=== PATIENT | male | born 1995 | race Hispanic/Latino ===

== ENCOUNTER 2022-01-12 21:02 | Emergency (ER) | payer OTHER, SELFPAY ==
--- NOTE | ~2022-01-12 | XR_ITS ---
EXAMINATION: XR chest 2V DATE: 01/12/2022 22:21 INDICATION: Cough. Congestion. TECHNIQUE: Frontal and lateral views of the chest were obtained. COMPARISON: None. FINDINGS: The chest demonstrates clear lungs without pneumonia, pleural effusion, or pneumothorax. Th e heart size is normal. IMPRESSION: 1. No acute cardiopulmonary disease. Reviewed, dictated and finalized at location A.
[2022-01-12 21:32] VITALS: BP 152/92; PULSE 88; RESP 16; TEMP 36.1; O2SAT 99
--- NOTE | 2022-01-12 22:14 | ED.URI ---
HPI - URI/Sore Throat General Chief Complaint: Upper Respiratory Infection <Martita Landers PA-C - Last Filed: 01/13/22 02:48> Stated Complaint: cough <DOMINGA Schmitt Last Filed: 01/13/22 02:48> Time Seen by Provider: 01/12/22 21:38 <DOMINGA Schmitt Last Filed: 01/13/22 02:48> Source: patient <DOMINGA Schmitt Last Filed: 01/13/22 02:48> Mode of arrival: ambulatory <DOMINGA Schmitt Last Filed: 01/13/22 02:48> Limitations: no limitations <DOMINGA Schmitt Last Filed: 01/13/22 02:48> History of Present Illness HPI Narrative: Patient is a 26-year-old male who presents the ED with report of persistent cough. Patient reports having a cough, congestion, rhinorrhea, sore throat for the past 1 week. He has been taking rstk-ooa-zapryvq cough and cold medications at home without relief. Over the past 2 days, he reports the cough has become worse, which prompted him to come to the ED. He is concerned he may have pneumonia. He denies any production of phlegm. He denies any difficulty breathing. He does report some rib pain with coughing, but denies any pain at rest. Denies any fever, chills, nausea, vomiting, abdominal pain. His at bedside has not had similar symptoms. He has taken at home COVID test that was negative. <DOMINGA Schmitt Last Filed: 01/13/22 02:48> Related Data Allergies/Adverse Reactions: Allergies Allergy/AdvReac Type Severity Reaction Status Date / Time No Known Allergies Allergy Verified 01/12/22 21:35 <DOMINGA Schmitt Last Filed: 01/13/22 02:48> Review of Systems Review of Systems: CONSTITUTIONAL: Denies fever, chills, or sweats. ENT: Reports rhinorrhea, congestion, sore throat. CARDIOVASCULAR: Denies chest pain, palpitations, or edema. RESPIRATORY: Reports dry cough. Denies dyspnea. GASTROINTESTINAL: Denies abdominal pain, nausea, vomiting. MUSCULOSKELETAL: Reports rib pain with coughing. Denies back pain, myalgia. NEUROLOGIC: Denies headache, numbness, or weakness. <Martita Landers PA-C - Last Filed: 01/13/22 02:48> All systems reviewed & are unremarkable except as noted in HPI and below <Martita Landers PA-C - Last Filed: 01/13/22 02:48> PMFSH Past Medical History Medical History: Medical History No pertinent past medical history <Martita Landers PA-C - Last Filed: 01/13/22 02:48> Surgical History Surgical History: Surgical History (Updated 01/12/22 @ 22:16 by Martita Landers PA-C) History of surgical removal of keloid <Martita Landers PA-C - Last Filed: 01/13/22 02:48> Social History Social History: Social History (Updated 01/12/22 @ 22:17 by Martita Landers PA-C) Smoking status: Never smoker <Martita Landers PA-C - Last Filed: 01/13/22 02:48> Exam Narrative: GENERAL: Well appearing, well-nourished, non-toxic, in no acute distress. HEAD: Normocephalic, atraumatic. EYES: EOMI, conjunctivae clear bilaterally. NOSE: Normal, no drainage. THROAT: Pharynx clear, no exudate. MMs moist. NECK: Supple. No adenopathy, no masses. RESPIRATORY: Airway patent, respirations nonlabored. Clear to auscultation bilaterally, no rales, rhonchi, wheezing. Rare cough on exam. CARDIOVASCULAR: Regular rate and rhythm without murmurs, rubs, or gallops. Peripheral pulses 2+ and equal bilaterally. MUSCULOSKELETAL: Moves all extremities. Strength/ROM intact without gross deformities. SKIN: Warm, dry, normal color. No rashes. NEURO: A&O X3. Speech clear. Cranial nerves II-XII grossly intact. Steady gait. No ataxic movements. PSYCHIATRIC: Appropriate mood and affect. Normal interaction. <Martita Landers PA-C - Last Filed: 01/13/22 02:48> Course STUDENT RECORDS COORDINATOR/PA Physician Supervision For this encounter, I have reviewed the FAB documentation, treatment plan and medical decision making: I was available for consultation as needed. [] <Nacho Hearn,
[2022-01-12 22:45] VITALS: BP 146/85; PULSE 92; RESP 16; O2SAT 98
[2022-01-12 23:31] LABS: SARS-CoV-2 RNA PCR Negative
--- NOTE | 2022-01-13 11:45 | PC.NURSE ---
erp dr divya cline'rgeta greenberg to change dose of benzonate to 100mg from 150mg.
== END 2022-01-12 23:25 | disposition home or self-care (01) ==
PROVIDERS: Physician Assistant; Emergency Provider Emergency Medicine; PCP Nurse Practitioner
DX: J06.9 Acute upper respiratory infection, unspecified (principal); Z20.822 Contact with and (suspected) exposure to COVID-19
CPT/HCPCS: 71046; 99283; C9803; U0003; U0005

== ENCOUNTER 2024-02-02 07:39 | Outpatient (CLI) | payer OTHER, SELFPAY ==
--- NOTE | ~2024-02-02 | US_ITS ---
Right upper quadrant ULTRASOUND Ordering provider: Robyn Cota, ANP History: . Elevated liver enzymes . Comparison: None. FINDINGS: LIVER: Normal size. Increased Echotexture suggestive of fat infiltration. No focal hepatic lesions or perihepatic fluid collections are identified. Normal portal vein flow. GALLBLADDER: Unremarkable. No evidence for stones, sludge, gallbladder wall thickening or pericholecy stic fluid collections. The wall thickness is 0.2 cm. A negative sonographic Gan's sign was noted. BILIARY DUCTS: No evidence for intra or extrahepatic biliary dilation. Common bile duct measures 5 mm in diameter which is within normal limits. PANCREAS: Not well demonstrated. KIDNEYS: Right measures 10.5 cm in length . There is no evidence for hydronephrosis, solid renal mass , renal calculi or perinephric fluid collections. No renal cysts. FREE FLUID: None. IMPRESSION: Fat infiltration of the liver otherwise, Unremarkable right upper quadrant ultrasound of the abdomen. Reviewed, dictated and finalized at location A. IMPRESSION: Fat infiltration of the liver otherwise, Unremarkable right upper quadrant ultr asound of the abdomen.
== END 2024-02-02 07:40 ==
PROVIDERS: PCP Nurse Practitioner; Visit Provider Nurse Practitioner
DX: R74.8 Abnormal levels of other serum enzymes (principal); K76.0 Fatty (change of) liver, not elsewhere classified
CPT/HCPCS: 76705

== ENCOUNTER 2025-06-28 15:05 | Emergency (ER) | payer OTHER, SELFPAY ==
[2025-06-28] VITALS (24 sets, daily range): BP systolic 134–163; BP diastolic 77–111; PULSE 93–115; RESP 12–22; TEMP 36.6; O2SAT 97–100
--- NOTE | ~2025-06-28 | XR_ITS ---
XR chest 2V INDICATION: Chest pain TECHNIQUE: 2 view chest. FINDINGS: 01/12/2022 There is mild bilateral interstitial prominence and peribronchial cuffing. There is no focal consolidation, pleural effusion, or pneumothorax. The cardiomediastinal silhouette is normal. IMPRESSION: 1. Findings most consistent with bronchiolitis versus an atypical or viral pneumonia. Reviewed, dictated and finalized at location I. ECTIONAL SERGEANT IMPRESSION: 1. Findings most consistent with bronchiolitis versus an atypical or viral pne [facility].
--- NOTE | 2025-06-28 15:07 | ECG_ITS ---
Test Date: 2025-06-28 15:11:15 Measurements Intervals [place] Rate: 113 P: 47 MO: 116 QRS: 48 QRSD: 92 T: 29 QT: 315 QTc: 432 Interpretive Statements SINUS TACHYCARDIA WITH SHORT MO INTERVAL POSSIBLE LEFT ATRIAL ENLARGEMENT MINIMAL Q WAVES- HIGH LATERAL LEADS ABNORMAL ECG No previous ECG available for comparison Electronically Signed On 06-28-2025 15:37:35 ROUGHENER by Jean Espinosa D.O.
[2025-06-28] MEDS: ASPIRIN 81 MG CHEWABLE TABLET 324 MG PO (15:28)
[2025-06-28 15:29] LABS: Hematocrit 47.2 % (42.0-52.0); Hemoglobin 15.9 g/dL (14.0-18.0); Immature Granulocyte Percent A 0.7 % (0-0.5); Lymphocytes Absolute Auto 2.67 K/mm3 (0.9-3.2); Mean Corpuscular HGB Conc 33.7 g/dl (32-36); Mean Corpuscular Hemoglobin 27.7 pg (26-34); Mean Corpuscular Volume 82.4 fl (80-100); Nucleated Red Blood Cells Absolute Auto 0.000 K/mm3 (0.0-0.012); Nucleated Red Blood Cells Perc 0.0 % (0.0-0.2); Platelet Count Result 251 k/mm3 (150-375); Red Blood Count 5.73 M/mm3 (4.6-6.20); White Blood Count 11.0 K/mm3 (4.5-10.0)
[2025-06-28 15:40] LABS: Alanine Aminotransferase 109 U/L (6-50); Albumin Level 4.9 g/dL (3.5-5.1); Alkaline Phosphatase 112 U/L (38-126); Anion Gap 9 mmol/L (4-12); Aspartate Amino Transferase 51 U/L (17-59); Bilirubin,Total 0.7 mg/dL (0.2-1.3); Blood Urea Nitrogen 12 mg/dL (9-20); Calcium 9.4 mg/dL (8.4-10.2); Carbon Dioxide 26 mmol/L (22-30); Chloride 104 mmol/L (98-107); Estimated CRCL calculation 123 ml/min; Estimated Glomerular Filt Rate > 60; Glucose 137 mg/dL (65-110); Lipase 90 U/L (23-300); Potassium 3.6 mmol/L (3.4-5.0); Sodium 139 mmol/L (137-145); Total Protein 8.8 g/dL (6.3-8.2)
[2025-06-28 15:49] LABS: INR 1.0; Prothrombin Time 13.1 Seconds (11.1-14.7)
[2025-06-28 15:50] LABS: Partial Thromboplastin Time 27.8 Seconds (22.3-36.8)
[2025-06-28 15:52] LABS: Troponin I < 0.012 ng/mL (0.000-0.034)
--- NOTE | 2025-06-28 16:06 | ED.CHESTPAIN ---
HPI - Chest Pain General Chief Complaint: Chest Pain Stated Complaint: CP Time Seen by Provider: 06/28/25 15:07 Source: patient Mode of arrival: ambulatory Limitations: no limitations History of Present Illness HPI narrative: Patient presents with report of left sided chest pain described as a tightness occurring intermittently since yesterday, not currently present. He has possibly been having palpitations. History of pneumonia 6 years ago. No other underlying respiratory conditions. He had an episode of shortness of breath while getting out of his truck earlier that lasted 5 minutes, has not recurred. No edema. No palliating or provoking factors. He has not been diagnosed with hypertension. Says when he has been at previously PCP visits, his SBP was >130 and he was concerned but says plan is for continued monitoring. He checked his BP yesterday and it was 159/105 and then 119/90 on recheck. Family history of hypertension. No personal history of cardiac issues, has never seen a mechanical design engineer products. No nausea/vomiting/fevers/chills/cough. Possible sick contacts given his work though nothing confirmed. Non radiating. Cardiac risk factors HTN: Borderline per patient but no official diagnosis HLD: Yes but no official diagnosis and not on statin (elevated by report and continuing to monitor) DM: No Obese: Yes Smoker: No Personal history VT/TIA/CVA: No Fam Hx VT in first degree relative <65yo: No Related Data Allergies Allergy/AdvReac Type Severity Reaction Status Date / Time No Known Allergies Allergy Verified 06/28/25 15:16 PMFSH Past Medical History Medical History Pneumonia approx 2019 Surgical History Surgical History (Updated 01/12/22 @ 22:16 by Martita Schaffer PA-C) History of surgical removal of keloid Family History Family History Mother Hypertension Grandparent Diabetes mellitus Hypertension Father Hypertension Social History Social History Smoking status: Never smoker Occupation/Education: occupation Additional occupation/education comments: hol[employer] Exam Narrative: GENERAL: Well-appearing, well-nourished, and in no acute distress. HEAD: Normocephalic, atraumatic. EYES: Non injected, non icteric ENT: Nares clear, no rhinorrhea or epistaxis. Gross auditory acuity intact. NECK: Supple. No meningismus. CHEST: Speaking in full sentences. No respiratory distress. Non labored. HEART: Tachycardic rate and rhythm. . ABDOMEN: Soft, nondistended. No rigidity or guarding. Not peritoneal EXTREMITIES: Normal range of motion. No lower extremity edema. SKIN: Warm, dry, no rash. NEURO: No focal deficits. Alert and oriented. Answering questions. Following commands. Normal speech without aphasia or dysarthria. PSYCH: Normal mood and affect. Course Vital Signs Vital signs: Vital Signs Temperature 97.9 F 06/28/25 15:12 Pulse Rate 109 H 06/28/25 15:12 Respiratory Rate 20 06/28/25 15:12 Blood Pressure 163/111 H 06/28/25 15:12 Pulse Oximetry 100 06/28/25 15:12 Oxygen Delivery Room Air 06/28/25 15:12 Temperature 97.9 F 06/28/25 15:12 Pulse Rate 96 06/28/25 19:03 Respiratory Rate 16 06/28/25 19:03 Blood Pressure 143/90 H 06/28/25 19:03 Pulse Oximetry 100 06/28/25 19:03 Oxygen Delivery Room Air 06/28/25 15:12 [facility] MDM Narrative Medical decision making narrative: Patient presents with intermittent chest pain since yesterday. Had an episode of SOB for 5 minutes. In the emergency department he is afebrile with vital signs notable for hypertension and tachycardia. Because of the tachycardia and the reported episode of shortness of breath, D-dimer ordered. HEART SCORE History 2 highly suspicious 1 moderately suspicious 0 slightly suspicious History score [address] depression/elevation not due to LBBB, LVH, or digoxin [address] depression but LBBB, LVH, nonspecific repolarization changes 0 normal ECG score 0 Age 2 >/= 65 1 45-64 0 <45 Age score 0 Risk factors (HTN, hypercholesterolemia, DM, obesity with BMI >30, current smoker or cessation </=3mo), positive fam hx with parent or sibling with CVD before age 65, atherosclerotic disease (prior VT, PCI/CABG, CVA/TIA, or peripheral arterial disease) 2 >/= 3 risk factors or history of atherosclerotic dz 1 - 1-2 risk factors 0 no known risk factors Risk factor score 1 Initial Troponin 2 >3 times normal limit 1 1-3 times normal limit 0 less than or equal to normal limit Troponin score 0 Total HEART Score 1 Mild leukocytosis. Dimer normal. CXR as below. Received first dose in ED and rest of course prescribed. Mild hyperglycemia but without anion gap or acidosis. Isolated ALT elevation; no prior for comparison. Lipase normal. Repeat troponin normal. Repeat BP has normalized. Advised to follow up with PCP regarding BP measurements/log at home. Provided a cardiology referral as well. Had discussed HEART score/risk stratification with patient as well. Differential Diagnosis Differential Diagnosis: Differential diagnostic considerations for chest pain?include?ACS, pneumothorax, pulmonary embolus, laure/pericarditis, angina, STEMI, esophageal abnormality, GI etiology, pneumonia, rib fracture, biliary colic, atypical/non-cardiac (MSK, etc). Medical Records I have reviewed the following patient records and this information was taken into consideration when formulating the assessment and plan.: previous labs (attempted) Lab Data MDM Lab Attestation statement: I personally reviewed the patient's lab results. 06/28/25 15:18 06/28/25 15:18 Labs: Lab Results 06/28/25 06/28/25 Range/Units 15:18 18:13 WBC 11.0 H (4.5-10.0) K/mm3 RBC 5.73 (4.6-6.20) M/mm3 Hgb 15.9 (14.0-18.0) g/dL Hct 47.2 (42.0-52.0) % MCV 82.4 (80-100) fl MCH 27.7 (26-34) pg MCHC 33.7 (32-36) g/dl RDW 12.9 (11.5-14.5) % Plt Count 251 (150-375) k/mm3 MPV 10.6 H (7.4-10.4) fl Immature Gran % (Auto) 0.7 H (0-0.5) % Neut % (Auto) 64.9 (45.5-73.1) % Lymph % (Auto) 24.3 (18.3-44.2) % Moore % (Auto) 5.7 (2.6-8.5) % Eos % (Auto) 3.9 (0-4.4) % Baso % (Auto) 0.5 (0.2-1.2) % Lymph # (Auto) 2.67 (0.9-3.2) K/mm3 Moore # (Auto) 0.6 (0.1-0.6) K/mm3 Eos # (Auto) 0.4 H (0-0.3) K/mm3 Baso # (Auto) 0.1 (0.0-0.1) K/mm3 Abs Immat Gran (auto) 0.08 H (0.00-0.031) K/mm3 Absolute Neuts (auto) 7.1 H (1.3-6.7) K/mm3 Absolute Nucleated RBC 0.000 (0.0-0.012) K/mm3 Nucleated RBC % 0.0 (0.0-0.2) % PT 13.1 (11.1-14.7) Seconds INR 1.0 APTT 27.8 (22.3-36.8) Seconds D-Dimer < 0.27 (<0.48) ug/mL Sodium 139 (137-145) mmol/L Potassium 3.6 (3.4-5.0) mmol/L Chloride 104 (98-107) mmol/L Carbon Dioxide 26 (22-30) mmol/L Anion Gap 9 (4-12) mmol/L BUN 12 (9-20) mg/dL Creatinine 1.00 (0.7-1.3) mg/dL Estim Creat Clear Calc 123 ml/min Estimated GFR > 60 (59 - ) Glucose 137 H (65-110) mg/dL Calcium 9.4 (8.4-10.2) mg/dL Total Bilirubin 0.7 (0.2-1.3) mg/dL AST 51 (17-59) U/L ALT 109 H (6-50) U/L Alkaline Phosphatase 112 (38-126) U/L Troponin I < 0.012 < 0.012 (0.000-0.034) ng/mL Total Protein 8.8 H (6.3-8.2) g/dL Albumin 4.9 (3.5-5.1) g/dL Lipase 90 (23-300) U/L Imaging Data Radiologist's impression: ITS Impressions Chest X-Ray 06/28/25 15:27 IMPRESSION: 1. Findings most consistent with bronchiolitis versus an atypical or viral pneumonia. ECG Data EKG #1: Attestation: I personally reviewed and interpreted this ECG as follows: ECG completion date: 06/28/25 ECG completion time: 15:11 Interpretation: Sinus tachycardia at a rate of 113 beats per minute. TN interval is noted to be shortened but it is 116 milliseconds. No delta wave or concerning features of Ogadi-Snfcomvpw-Psbpt. Good R-wave progression across the precordial leads. T-wave flattening in 3 but upright in contiguous inferior leads and no other T-wave inversions. EKG #2: Attestation: I personally reviewed and interpreted this ECG as follows: ECG completion date: 06/28/25 ECG completion time: 18:19 Interpretation: Normal sinus rhythm at a rate of 88 beats per minute. TN interval 142. QRS 96. QT/QTC 362/439. Good R-wave progression across the precordial leads. No T-wave inversions. Normal ECG. Normal axis. Discharge Plan Discharge Clinical Impression: Chest x-ray abnormality, Leukocytosis, Elevated alanine aminotransferase (ALT) level, Chest pain, Shortness of breath, Elevated blood pressure reading without diagnosis of hypertension Patient Disposition: Home Condition: Stable Instructions: Antibiotic Form, Chest Pain (ED), How to Take a Blood Pressure Reading (ED), Pneumonia (ED), Shortness of Breath (ED), Transaminitis (ED) Additional Instructions: Your EKGs and 2 cardiac enzymes/troponin were reassuring. Your chest x-ray did show evidence of bronchiolitis versus pneumonia and for this reason you received your 1st dose of antibiotic in the emergency department and the rest of the course is prescribed. Follow up with your PCP for this and your elevated liver enzyme. Continue to check your BP and take a log to your PCP; they will use this information to determine if you need to be put on a blood pressure medication /diagnose you with hypertension. THe name of a mechanical design engineer products is listed below if you would like to follow up with them. Acetaminophen/Tylenol (maximum 4000 mg per day) is safe to take with NSAIDs (ibuprofen/Motrin) for pain relief. Return to the emergency department any new or worsening symptoms. Patient Language: [place]ese Prescriptions: New doxycycline hyclate 100 mg capsule 100 mg PO DAILY Qty: 5 0RF No Action benzonatate 150 mg capsule 150 mg PO TID PRN (Reason: cough) Qty: 15 0RF Follow-up/Referrals: Fidel Chapa MD [Physician, Cardiology] Beata,LINDA Lockett [Primary Care Provider, Unknown] Stand Alone Forms: Work/School Release IP Time of Disposition: 18:55
--- OUTSIDE RECORDS SUMMARY | 2025-06-28 16:27 | XMS_ITS | Clinical Summary ---
Author Organization [facility] Address [address] [place] [address] Care Team Providers Care First Line Production Supervisor Name Role Phone Robyn Cota NP Primary Care Provider [phone] Allergies No known active allergies Medications No known medications Active Problems Problem Noted Date Diagnosed Date Hypertension, unspecified type 01/09/2022 Obesity (BMI 30.0-34.9) 01/09/2022 Skin nodule 01/09/2022 Keloid 01/09/2022 Encounters Date Type Department Care Team Description 06/28/2025 [place] Message Enc [facility] Family Medicine [facility] [address] [address] Robyn Cota NP Cardiovascular from Last 3 Months Immunizations Immunization Administration Dates Next Due Influenza Adult (Generic) 09/02/2022 MMR (MMRII) 09/02/2022 Tdap (Generic) 09/02/2022 Family History Medical History Relation Comments Hypertension Father Cancer Maternal Grandfather Diabetes Maternal Grandmother Hypertension Mother Relation Status Comments Father Maternal Grandfather Maternal Grandmother Mother Social History Tobacco Use Types Packs/Day Years Used Date Smoking Tobacco: Never Passive Smoke Exposure: Never Smokeless Tobacco: Never Tobacco Cessation:Counseling Given: No Alcohol Use Standard Drinks/Week Comments Yes 4 (1 standard drink = 0.6 oz pur e alcohol) PHQ-2 Answer Date Recorded Patient Health Questionnaire-2 Score 0 01/15/2024 Sex and Gender Information Value Date Recorded Sex Assigned at Not on file Legal Sex Male 1:01 PM CDT Gender Identity Not on file Sexual Orientation Not on file Last Filed Vital Signs Vital Sign Reading Time Taken Comments Blood Pressure 120/90 01/15/2024 10:01 AM CDT Pulse 80 01/15/2024 9:21 AM CDT Temperature 37.1 C (98.7 F) 01/15/2024 9:21 AM CDT Respiratory Rate 22 01/15/2024 9:21 AM CDT Oxygen Saturation 97% 01/15/2024 9:21 AM CDT Inhaled Oxygen Concentration - - Weight 116.1 kg (256 lb) 01/15/2024 9:21 AM CDT Height 177.8 cm (5' 10) 01/15/2024 9:21 AM CDT Body Mass Index 36.73 01/15/2024 9:21 AM CDT Plan of Treatment Health Maintenance Due Date Last Done Comments Hepatitis B Vaccines (2 of 2 - CpG 2-dose series) 10/27/2023 09/29/2023 HPV Vaccines (1 - 3-dose SCD M series) 12/25/2023 PHQ-2 (Physician Lorraine) 07/27/2024 01/15/2024 Annual Physical 01/14/2025 01/15/2024, 01/14/2023, 01/09/2022 COVID-19 Vaccine (1 - 2024-2 6 season) 2025 Influenza Adult (#1) 2025 09/02/2022 DTaP, Tdap and Td Vaccines ( 2 - Td or Tdap) 09/02/2032 09/02/2022 Hepatitis C Completed 02/03/2022 Hepatitis A Vaccines Aged Out No long er eligible based on patient's age to complete this topic Meningococcal B Vaccine Aged Out No l onger eligible based on patient's age to complete this topic Meningococcal Vaccine Aged Out No rafia lei eligible based on patient's age to complete this topic Pneumococcal Vaccine: Pediatrics (0 to 5 Years) and At-Risk Patients (6 to 49 Years) Aged Out No longer eligible b ased on patient's age to complete this topic RSV Immunizations Under 20 Months Aged Out No longer eligible b ased on patient's age to complete this topic Procedures Procedure Name Priority Date/Time Associated Diagnosis Comments HEPATITIS C ANTIBODY Routine 02/03/2022 7:57 AM CDT Need for hepatitis C screening test from Last 3 Months or Most Recently Relevant to Health Maintenance Results * HEPATITIS C ANTIBODY (02/03/2022 7:57 AM CDT) HEPATITIS C AB NON-REACTI VE NON-REACT TANISHA 02/03/2022 7:29 PM CDT [facility] Comment: ANTIBODIES TO HCV NOT DETECTED. DOES NOT EXCLUDE THE POSSIBILITY OF EXPOSURE TO HCV. 02/03/2022 7:57 AM CDT us Robyn Cota NP LABORATORY Final Res ult [facility] [address] [place] [address], [id number] from Last 3 Months or Most Recently Relevant to Health Maintenance Insurance [facility] [place] [id number] [facility] Care Teams First Line Production Supervisor Relationship Specialty Start Date End Date Robyn Cota NP [address] [place] [address] PCP - General NURSE PRACTITIONER 01/03/22
--- OUTSIDE RECORDS SUMMARY | 2025-06-28 16:27 | XMS_ITS | Encounter Summary ---
Author Organization [facility] Address [address] [place] [address] Care Team Providers Care Bioinformaticist Name Role Phone Robyn Cota NP Primary Care Provider [phone] Encounter Details Date Type Department Care Team (Late st Contact Info) Description 06/28/2025 [employer] RFID Message Enc [facility] Family Medicine - [place] [address] [facility] [address] [place] [address] [phone] Robyn Cota, SHEET METAL OPERATOR [address] [place], [place] [id number] Cardiovascular Social History Tobacco Use Types Packs/Day Years Used Date Smoking Tobacco: Never Passive Smoke Exposure: Never Smokeless Tobacco: Never Alcohol Use Standard Drinks/Week Comments Yes 4 (1 standard drink = 0.6 oz pur e alcohol) PHQ-2 Answer Date Recorded Patient Health Questionnaire-2 Score 0 01/15/2024 Sex and Gender Information Value Date Recorded Sex Assigned at Not on file Legal Sex Male 1:01 PM CDT Gender Identity Not on file Sexual Orientation Not on file documented as of this encounter Progress Notes * Amber Alexander MA - 06/28/2025 3:02 PM CST Do you want to see him in office first or ok for the referral? L CAMPAIGN SPECIALIST documented in this encounter Plan of Treatment Not on file documented as of this encounter Visit Diagnoses Not on filedocumented in this encounter Care Teams Bioinformaticist Relationship Specialty Start Date End Date Robyn Cota NP [address] [place] [address] PCP - General NURSE PRACTITIONER 01/03/22 documented as of this encounter
--- OUTSIDE RECORDS SUMMARY | 2025-06-28 16:28 | XMS_ITS | Patient Health Record ---
Author Organization [facility] Address [address] [place] [address] Care Team Providers Care Scale And Skip Car Operator Name Role Phone DR. Gloden Walsh Unavailable [phone] Reason For Referral No Information Plan Of Treatment No Information
--- OUTSIDE RECORDS SUMMARY | 2025-06-28 16:50 | XMS_ITS | Clinical Summary ---
Author Organization [facility] Address [address] [place] [address] Care Team Providers Care Print Support Specialist Name Role Phone Robyn Cota NP Primary Care Provider [phone] Allergies No known active allergies Medications No known medications Active Problems Problem Noted Date Diagnosed Date Hypertension, unspecified type 01/09/2022 Obesity (BMI 30.0-34.9) 01/09/2022 Skin nodule 01/09/2022 Keloid 01/09/2022 Encounters Date Type Department Care Team Description 06/28/2025 Fidelis Message Enc [facility] Family Medicine [facility] [address] [address] Robyn Cota NP Cardiovascular from [...] 3-dose SCD M series) 12/25/2023 PHQ-2 (Physician Jewett) 07/27/2024 01/15/2024 Annual Physical 01/14/2025 01/15/2024, 01/14/2023, [...] VE NON-REACT TANISHA 02/03/2022 7:29 PM CDT [facility] Comment: ANTIBODIES TO HCV NOT DETECTED. DOES NOT EXCLUDE THE POSSIBILITY OF EXPOSURE TO HCV. 02/03/2022 7:57 AM CDT us Robyn Cota NP LABORATORY Final Res ult [facility] [address] [place] [address], [id number] from Last 3 Months or Most Recently Relevant to Health Maintenance Insurance [facility] [place] [id number] [facility] Care Teams Print Support Specialist Relationship Specialty Start Date End Date Robyn Cota NP [address] [place] [address] PCP - General NURSE PRACTITIONER 01/03/22
--- OUTSIDE RECORDS SUMMARY | 2025-06-28 16:50 | XMS_ITS | Encounter Summary ---
Author Organization [facility] Address [address] [place] [id number] Care Team Providers Care Obstetric Assistant Name Role Phone Robyn Cota NP Primary Care Provider [phone] Encounter Details Date Type Department Care Team (Late st Contact Info) Description 06/28/2025 [employer] Message Enc [facility] Family Medicine - [place] [address] [facility] [address] [place] [address] [phone] Robyn Cota, UNDERGRADUATE INTERN [address] [place], [place] [id number] Cardiovascular Social History Tobacco Use Types Packs/Day [...] office first or ok for the referral? F WHARFINGER documented in this encounter Plan of Treatment Not on file documented as of this encounter Visit Diagnoses Not on filedocumented in this encounter Care Teams Obstetric Assistant Relationship Specialty Start Date End Date Robyn Cota NP [address] [place] [address] PCP - General NURSE PRACTITIONER 01/03/22 documented as of this encounter
[2025-06-28] MEDS: DOXYCYCLINE HYCLATE 100 MG TABLET PO (17:37)
--- NOTE | 2025-06-28 18:03 | ECG_ITS ---
Test Date: 2025-06-28 18:19:51 Measurements Intervals [place] Rate: 88 P: 51 AK: 142 QRS: 32 QRSD: 96 T: 30 QT: 362 QTc: 439 Interpretive Statements SINUS RHYTHM MINIMAL Q WAVES- HIGH LATERAL LEADS BORDERLINE ECG Compared to ECG 06/28/2025 15:11:15 HEART RATE HAS DECREASED Electronically Signed On 06-28-2025 19:28:25 RELOCATION COUNSELOR by Jean Espinosa D.O.
[2025-06-28 18:42] LABS: Troponin I < 0.012 ng/mL (0.000-0.034)
== END 2025-06-28 19:05 | disposition home or self-care (01) ==
PROVIDERS: Emergency Medicine; Emergency Provider Student in an Organized Health Care Education/Training Program; PCP Nurse Practitioner
DX: R07.89 Other chest pain (principal); D72.829 Elevated white blood cell count, unspecified; R74.01 Elevation of levels of liver transaminase levels; R03.0 Elevated blood-pressure reading, without diagnosis of hypertension; R06.02 Shortness of breath; R91.8 Other nonspecific abnormal finding of lung field; Z87.01 Personal history of pneumonia (recurrent); R94.31 Abnormal electrocardiogram [ECG] [EKG]; R00.0 Tachycardia, unspecified
CPT/HCPCS: 36415; 71046; 80053; 83690; 84484; 85025; 85380; 85610; 85730; 93005; 99284; A9270